=== PATIENT | female | born 1970 | race Caucasian/White ===

== ENCOUNTER 2017-10-07 18:31 | Emergency (ER) | payer OTHER ==
[2017-10-07 18:38] VITALS: RESP 18
--- NOTE | 2017-10-07 19:41 | EDPHY ---
General Time Seen by Provider: 10/07/17 19:00 Narrative: CHIEF COMPLAINT: Right forearm "bump" with concern for DVT HISTORY OF PRESENT ILLNESS: Patient reports 1 day history of feeling a "bump" in her right forearm. This is on the anterolateral aspect of the radius. It is not necessarily painful she says. She feels that an as aches stream concern for DVT as she is scheduled to have chemotherapy tomorrow morning. She is in the 2nd round of her chemotherapy, administered once weekly for ovarian cancer. She has missed recently and does not want to miss again tomorrow. She has no previous history of DVT. She has no chest pain or shortness of breath. No fever. No redness or warmth. No other associated complaints or modifying factors. REVIEW OF SYSTEMS: Ten systems reviewed and are negative unless otherwise noted in the HPI PCP: Dr. Gilbert SPECIALISTS: Dr. Gilbert PAST MEDICAL HISTORY: Ovarian cancer. Hypothyroid PAST SURGICAL HISTORY: No recent surgeries SOCIAL HISTORY: Nonsmoker. No drug or alcohol use. Lives and works here locally. Lives independently FAMILY HISTORY: Noncontributory EXAMINATION General Appearance: Alert, no distress Head: normocephalic, atraumatic Eyes: Pupils equal and round, no conjunctival pallor or injection ENT, Mouth: Mucous membranes moist Neck: Normal inspection, supple, non-tender Respiratory: Lungs are clear to auscultation. No wheezing, rhonchi or crackles Cardiovascular: Regular rate and rhythm. No murmur. Symmetric radial pulses 2 +. Neurological: A&O, nonfocal, normal gait. Symmetric interossei strength of the hands Skin: Warm and dry, no rash. No petechiae or purpura. No erythema of the right upper extremity. Extremities: Nontender, no pedal edema. No right upper extremity edema. There is a firmness palpable in the right mid shaft of the forearm over the radial side. No warmth. No tenderness to the hand, wrist or elbow. Psychiatric: Mood and affect normal DIFFERENTIAL DIAGNOSES: Including but not limited to DVT, superficial thrombus, cyst, phlebitis MDM: 7:00 p.m. Right forearm firmness with patient concern for DVT. There is no erythema. There is no edema of the extremity that I appreciate. She does have risk factors including chemotherapy and cancer. She is in no acute distress with normal vital signs and normal appearance of the extremity and neurovascular intact distally. Ultrasound has been ordered prior to my examination. No 7:[address] [place]. There is a superficial thrombus in the right cephalic vein extending from the elbow to the mid forearm. No DVT. 7:45 p.m. I discussed with Dr. Ragland and I have re-evaluated the patient. I discussed superficial thrombus and informed that she does not have a DVT. We discussed the plan of anti-inflammatories, ibuprofen 600 mg every 6-8 hours. We discussed warm compresses. I instructed her to discuss this finding with her physician tomorrow morning at her 8:00 a.m. Appointment. She will need follow-up to resolution for this. 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 Strict ED precautions for any worsening pain, redness or swelling. Strict ED precautions for chest pain or shortness of breath. She is agreeable with this plan and discharged home stable condition. SUPERVISION: Patient was independently examined, but I discussed the case with my secondary supervising physician Dr. Ragland - Diagnostics Imaging Results: Imaging Impressions Extremity Venous Study 10/07/17 18:39 Impression: 1. Superficial thrombus involving the cephalic vein from the elbow to the mid forearm. This corresponds to area of palpable abnormality. 2. No deep venous thrombosis right upper extremity. These findings were discussed by telephone with Dr. Sascha Robertson PA-C at 19:36 hour, 10/07/2017. - History Smoking Status: Never smoked - Objective Vital Signs: Initial Vital Signs Temperature (C) 97.0 F 10/07/17 18:36 Heart Rate 81 10/07/17 18:36 Respiratory Rate 18 10/07/17 18:36 Blood Pressure 106/73 10/07/17 18:36 O2 Sat (%) 98 10/07/17 18:36 O2 Delivery Mode Room Air Allergies/Adverse Reactions: No Known Allergies Allergy (Unverified 10/07/17 18:34) Home Medications: Medication Instructions Recorded Levothyroxine 10/07/17 Medications Given: Discontinued Medications Ibuprofen (Motrin) 600 mg PO EDNOW ONE Stop: 10/07/17 20:00 Last Admin: 10/07/17 20:21 Dose: 600 mg Departure - Departure Disposition: Home, Routine, Self-Care Clinical Impression: Acute thrombosis of cephalic vein Qualifiers: Laterality: right Qualified Code(s): I82.611 - Acute embolism and thrombosis of superficial veins of right upper extremity Condition: Good Instructions: Superficial Thrombophlebitis (ED) Additional Instructions: 1. Ibuprofen 600 mg every 6-8 hours 2. Warm compresses to the right forearm 3. Discussed the cephalic vein thrombophlebitis with your physician tomorrow morning after 8:00 a.m. Appointment 4. ED precautions as discussed Referrals: Pedro Sanchez MD [Primary Care Provider] - As per Instructions
[2017-10-07] MEDS ORDERED: IBUPROFEN 600 MG TAB PO ONE (19:59)
[2017-10-07 20:24] VITALS: BP 110/78; PULSE 66; TEMP 98.2; O2SAT 96
== END 2017-10-07 20:25 | disposition home or self-care (01) ==
DX: I82.611 Acute embolism and thrombosis of superficial veins of right upper extremity (principal); Z85.43 Personal history of malignant neoplasm of ovary